=== PATIENT | male | born 1945 | race Caucasian/White ===

== ENCOUNTER 2018-05-05 17:21 | Emergency (ER) | payer MEDICARE ==
--- OUTSIDE RECORDS SUMMARY | 2018-05-05 17:42 | XMS REPORT | Continuity of Care Document ---
:1945 External Reference #:[id number] Author Name Kimberley Russell M.D. 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 Lavern Yusuf MD Primary Care Physician Unavailable Payers Type Date Identification Numbers Payment Provider Subscriber Policy Number: [id number] Medicare Logan Mcintyre PayID: [id number] [place] [address] Effective: 2009 Policy Number: [id number] Medicare Logan Mcintyre Expires: 2017 PayID: [id number] [address] [place] [address] Effective: 2014 Policy Number: [employer] Logan Mcintyre [id number] Healthcare PayID: [id number] [place] [address] Advance Directives Description No Information Available Problems Date Description Provider Status Onset: 06/21/2014 Benign essential hypertension Isabel Garcia M.D. Active Onset: 06/21/2014 Mixed hyperlipidemia Isabel Garcia M.D. Active Onset: 06/21/2014 Central sleep apnea syndrome Isabel Garcia M.D. Active Onset: 06/21/2014 Heartburn Isabel Garcia M.D. Active Onset: 06/21/2014 History of allergy to seafood Isabel Garcia M.D. Active Onset: 06/21/2014 Allergic rhinitis Isabel Garcia M.D. Active Onset: 06/21/2014 Sciatica Isabel Garcia M.D. Active Onset: 06/21/2014 Aortic aneurysm Isabel Garcia M.D. Active Onset: 06/21/2014 Transient global amnesia Isabel Garcia M.D. Active Onset: 01/03/2015 Essential hypertension Isabel Garcia M.D. Active Onset: 07/11/2015 Centriacinar emphysema Lavern Yusuf MD Active Onset: 07/11/2015 Lymphadenopathy Lavern Yusuf MD Active Onset: 07/11/2015 Gastroesophageal reflux disease Lavern Yusuf MD Active Onset: 03/18/2017 Otitis externa Grant Murillo M.D. Active Onset: 04/02/2017 Arthralgia of the pelvic region and Jeremiah Taylor M.D. Active thigh Onset: 05/13/2017 Acute sinusitis Lavern Yusuf MD Active Onset: 08/13/2017 Abnormal glucose level Lavern Yusuf MD Active Onset: 08/13/2017 Acquired renal cystic disease Lavern Yusuf MD Active Onset: 04/10/2018 Raised prostate specific antigen Kimberley Russell M.D. Active Family History Date Family Member(s) Problem(s) Comments Father due to War () Mother Hypertension First Brother Heart Disease Social History Type Date Description Comments Sex Unknown Lives With Diet Patient is on a low carb diet Occupation Retired ADL's/IADL's Independent with all ADL's Tobacco Use Start: Unknown End: Quit 1984 Unknown Cigarette Use Pack Years - 25 ETOH Use Denies alcohol use Tobacco Use Start: Unknown End: Patient is a former Pt quit smoking smoker 1989. Recreational Drug Use Denies Drug Use Smoking Status Reviewed: 04/08/18 Patient is a former Pt quit smoking smoker 1989. Allergies, Adverse Reactions, Alerts Date Description Reaction Status Severity Comments 07/20/2014 Levaquin Active 06/07/2014 NKDA Inactive Medications Medication Date Status Form Strength Qnty SIG Indications Ordering Provider Omeprazole 03/[address] 10mg 90cap take 1 R12 Gagen, 2018 s capsules Gemini by mouth e, MS, every day [employer], 30 minutes CNM before a meal. Ipratropium 03/04 Active Solution 0.06% 15ml use 2 J06.9 Gagen, [place] sprays in Gemini each e, MS, nostril [employer], twice a CNM day Tylenol 8 Hour 02/18 Active Tablets ER 650mg 60tab 1 tab by [place], Arthritis Pain s mouth Jeremiah, every 6 M.D. hours pain Zyrtec Allergy 06/07 Active Tablets 10mg 90tab 1 tab by Madelin, /2016 s mouth MD Lavern every night Fluticasone 06/07 Active Suspension 50mcg/Act 15.80 2 sprays Madelin, Propionate 0ml intranasal MD Lavern every day Colchicine 10/08 Active Tablets 0.6mg 30tab take 1 tab M79.674 Madelin, /2015 s at first MD Lavern sign of gout attack followed by a 2nd dose 1 hour later; then take 1 tab daily until sx resolve Amlodipine 07/20 Active Tablets 5mg 90tab Take One Madelin, Besylate s Tablet By MD Lavern Mouth Once Daily Fish Oil + D3 06/21 Active Capsules 6306-7993 30cap by mouth E78.2 Mezu , /2014 mg-Unit s twice a Isabel, day M.D. Hydrochlorothiazi 06/21 Active Tablets 25mg 90tab Take One I10 Madelin, de s Tablet By MD Lavern Mouth Once Daily Aspir-[address] 81mg 1 by mouth Unknown /0000 every day Simvastatin Active Tablets 20mg 90tab take one Gagen, / s tablet by Gemini mouth once e, MS, daily [employer], CNM Lisinopril Active Tablets 40mg 90tab Take One I10 Soria, / s Tablet By Sharif Mouth Once M.D. Daily Amoxicillin/Clavu 03/04 Hx Tablets 875-125mg 20tab take one J01.90 Gagen, lanate Potassium /2017 s tablet Gemini - every 12 e, MS, 04/10 hours [employer], CNM Doxycycline 02/04 Hx Capsules 100mg 20cap 1 po bid J01.90 Madelin, Monohydrate /2017 s MD Lavern - 02/14 Amoxicillin/Clavu 05/23 Hx Tablets 875-125mg 20tab 1 tab by Madelin, lanate Potassium /2017 s mouth MD Lavern - q12hrs for 08/13 10 days Neomycin/Polymyxi 03/18 Hx Suspension 3.5-81748 1bott 4 gtt in [facility] n/Hydrocortisone /2016 -1 affected , (Otic) ear tid Grant, for 10 M.D. days Amoxicillin/Clavu 03/01 Hx Tablets 875-125mg 14tab 1 tab by Madelin, lanate Potassium /2015 s mouth MD Lavern - q12hrs for 05/27 7 days Fluticasone 03/01 Hx Suspension 50mcg/Act 16gm 1-2 sprays Madelin, Propionate intranasal MD Lavern - every day 06/07 as needed /2016 Metoprolol 01/25 Hx Tablets ER 25mg 90tab 1 by mouth I10 Madelin, Succinate ER /2015 24HR s every day MD Lavern - 09/11 Metoprolol Hx Tablets ER 50mg 30tab 1 by mouth 401.1 Mezu, Succinate ER /0000 24HR s every day Ike Hall M.D. 07/20 Metamucil Hx Powder 28.3% 1 Unknown /0000 tablespoon daily in fld Fish Oil 0000 Hx Capsules by mouth Unknown /0000 twice a - day 06/21 Allergy Relief 00 Hx Capsules as needed Unknown /0000 Metoprolol 0000 Hx Tablets ER 50mg 1 by mouth Unknown Succinate ER /0000 24HR every day Omeprazole [address] 20mg 90cap take one R12 Gagen, /0000 s capsule by Gemini - mouth once e, MS, 03/04 daily [employer], /2018 CNM Immunizations CPT Code Status Date Vaccine Lot # [id number] Given 03/11/2018 Influenza High Dose [id number] Given 02/05/2017 Influenza High Dose [id number] Given 01/26/2016 Influenza Vaccine (Fluzone) Age 3 And Older [id number] Given 01/03/2015 Influenza Vaccine (Fluzone) Age 3 And Older [id number] Given 01/03/2015 Pneumococcal Conjugate Vaccine 13 Valent For [id number] Intramuscular Use Vital Signs Date Vital Result Comment 04/10/2018 10:39am BP Systolic 153 mmHg BP Diastolic 77 mmHg Body Temperature 98.4 F Heart Rate 65 /min Respiratory Rate 16 /min Weight 241.00 lb O2 % BldC Oximetry 97 % Pain Level 0 04/10/2018 10:35am Weight 241.00 lb Pain Level 0 03/11/2018 10:46am BP Systolic Sitting Left Arm 103 mmHg BP Diastolic Sitting Left Arm 71 mmHg Body Temperature 97.7 F Heart Rate 79 /min Respiratory Rate 20 /min Height 71.5 inches 5'11.50" Weight 241.00 lb BMI (Body Mass Index) 33.1 kg/m2 BSA (Body Surface Area) 2.29 m2 Moody body weight in kilograms 79 kg O2 % BldC Oximetry 94 % 03/04/2018 1:41pm BP Systolic Sitting Left Arm 110 mmHg BP Diastolic Sitting Left Arm 60 mmHg Body Temperature 99.0 F Heart Rate 87 /min Respiratory Rate 24 /min Height 71.5 inches 5'11.50" Weight 241.00 lb per pt BMI (Body Mass Index) 33.1 kg/m2 BSA (Body Surface Area) 2.29 m2 Moody body weight in kilograms 79 kg O2 % BldC Oximetry 96 % Ra 02/04/2018 10:33am BP Systolic Sitting Left Arm 118 mmHg BP Diastolic Sitting Left Arm 70 mmHg Body Temperature 99.4 F Heart Rate 74 /min reg Respiratory Rate 24 /min Height 71.5 inches 5'11.50" Weight 249.00 lb BMI (Body Mass Index) 34.2 kg/m2 BSA (Body Surface Area) 2.33 m2 Moody body weight in kilograms 79 kg O2 % BldC Oximetry 98 % ra 09/10/2017 3:15pm BP Systolic Sitting Right Arm 138 mmHg BP Diastolic Sitting Right Arm 82 mmHg Heart Rate 54 /min Respiratory Rate 18 /min Height 71.5 inches 5'11.50" Weight 231.00 lb BMI (Body Mass Index) 31.8 kg/m2 BSA (Body Surface Area) 2.25 m2 Moody body weight in kilograms 79 kg 08/13/2017 9:38am BP Systolic Sitting Right Arm 112 mmHg BP Diastolic Sitting Right Arm 63 mmHg Heart Rate 55 /min Respiratory Rate 16 /min Height 71.5 inches 5'11.50" Weight 235.00 lb BMI (Body Mass Index) 32.3 kg/m2 BSA (Body Surface Area) 2.27 m2 Moody body weight in kilograms 79 kg 05/13/2017 10:35am BP Systolic Sitting Right Arm 135 mmHg BP Diastolic Sitting Right Arm 75 mmHg Body Temperature 98.1 F Heart Rate 62 /min Height 71.5 inches 5'11.50" Weight 233.00 lb BMI (Body Mass Index) 32.0 kg/m2 BSA (Body Surface Area) 2.26 m2 Moody body weight in kilograms 79 kg O2 % BldC Oximetry 95 % 04/02/2017 1:24pm BP Systolic Sitting Left Arm 95 mmHg BP Diastolic Sitting Left Arm 59 mmHg Body Temperature 97.9 F Heart Rate 61 /min Respiratory Rate 20 /min Height 71.5 inches 5'11.50" Weight 231.00 lb BMI (Body Mass Index) 31.8 kg/m2 BSA (Body Surface Area) 2.25 m2 Moody body weight in kilograms 79 kg 03/18/2017 1:06pm BP Systolic Sitting Right Arm 125 mmHg BP Diastolic Sitting Right Arm 69 mmHg Body Temperature 97.7 F Heart Rate 60 /min Height 71.5 inches 5'11.50" Weight 230.00 lb BMI (Body Mass Index) 31.6 kg/m2 BSA (Body Surface Area) 2.25 m2 Moody body weight in kilograms 79 kg O2 % BldC Oximetry 92 % ra 02/18/2017 3:30pm BP Systolic 122 mmHg BP Diastolic 68 mmHg Body Temperature 97.7 F Height 71.5 inches 5'11.50" Weight 237.00 lb BMI (Body Mass Index) 32.6 kg/m2 BSA (Body Surface Area) 2.28 m2 Moody body weight in kilograms 79 kg 02/05/2017 9:40am BP Systolic Sitting Left Arm 120 mmHg BP Diastolic Sitting Left Arm 64 mmHg Heart Rate 54 /min Respiratory Rate 12 /min Height 71.5 inches 5'11.50" Weight 227.00 lb BMI (Body Mass Index) 31.2 kg/m2 BSA (Body Surface Area) 2.24 m2 Moody body weight in kilograms 79 kg 10/07/2016 10:01am BP Systolic Sitting Right Arm 112 mmHg BP Diastolic Sitting Right Arm 62 mmHg Body Temperature 94.8 F Heart Rate 55 /min Height 71.5 inches 5'11.50" Weight 232.00 lb BMI (Body Mass Index) 31.9 kg/m2 BSA (Body Surface Area) 2.26 m2 Moody body weight in kilograms 79 kg O2 % BldC Oximetry 96 % 06/07/2016 9:56am BP Systolic Sitting Right Arm 122 mmHg BP Diastolic Sitting Right Arm 66 mmHg Heart Rate 54 /min Height 71.5 inches 5'11.50" Weight 231.00 lb BMI (Body Mass Index) 31.8 kg/m2 BSA (Body Surface Area) 2.25 m2 O2 % BldC Oximetry 92 % 03/01/2016 3:38pm BP Systolic 146 mmHg BP Diastolic 72 mmHg Body Temperature 97.3 F Heart Rate 56 /min Height 71.5 inches 5'11.50" Weight 226.00 lb BMI (Body Mass Index) 31.1 kg/m2 BSA (Body Surface Area) 2.23 m2 01/26/2016 9:35am BP Systolic 124 mmHg BP Diastolic 72 mmHg Heart Rate 72 /min Height 71.5 inches 5'11.50" Weight 233.00 lb BMI (Body Mass Index) 32.0 kg/m2 BSA (Body Surface Area) 2.26 m2 10/09/2015 2:40pm BP Systolic Sitting Right Arm 132 mmHg BP Diastolic Sitting Right Arm 70 mmHg Body Temperature 98.2 F Height 71.5 inches 5'11.50" Weight 249.50 lb BMI (Body Mass Index) 34.3 kg/m2 BSA (Body Surface Area) 2.33 m2 09/11/2015 9:15am BP Systolic Sitting Left Arm 112 mmHg BP Diastolic Sitting Left Arm 64 mmHg Heart Rate 61 /min Respiratory Rate 16 /min Height 71.5 inches 5'11.50" Weight 256.00 lb BMI (Body Mass Index) 35.2 kg/m2 BSA (Body Surface Area) 2.35 m2 07/11/2015 10:15am BP Systolic 120 mmHg BP Diastolic 74 mmHg Heart Rate 64 /min Height 71.5 inches 5'11.50" Weight 245.00 lb BMI (Body Mass Index) 33.7 kg/m2 BSA (Body Surface Area) 2.31 m2 01/03/2015 10:42am BP Systolic 136 mmHg BP Diastolic 60 mmHg Heart Rate 60 /min Height 71.5 inches 5'11.50" Weight 247.00 lb BMI (Body Mass Index) 34.0 kg/m2 BSA (Body Surface Area) 2.32 m2 O2 % BldC Oximetry 93 % Ra 09/05/2014 11:35am BP Systolic Sitting Left Arm 120 mmHg BP Diastolic Sitting Left Arm 62 mmHg Heart Rate 76 /min Respiratory Rate 16 /min Height 71.5 inches 5'11.50" Weight 250.00 lb BMI (Body Mass Index) 34.4 kg/m2 BSA (Body Surface Area) 2.33 m2 07/20/2014 8:44am Heart Rate 52 /min Respiratory Rate 16 /min Height 71.5 inches 5'11.50" Weight 252.00 lb BMI (Body Mass Index) 34.7 kg/m2 BSA (Body Surface Area) 2.34 m2 06/21/2014 9:45am BP Systolic Sitting Right Arm 120 mmHg BP Diastolic Sitting Right Arm 70 mmHg Heart Rate 51 /min Respiratory Rate 18 /min Height 71.5 inches 5'11.50" Weight 245.00 lb BMI (Body Mass Index) 33.7 kg/m2 BSA (Body Surface Area) 2.31 m2 O2 % BldC Oximetry 94 % Results Test Date Facility Test Result H/L Range Note Laboratory test 02/27/2018 [facility] Prostate Specific 5.71 ng/mL < 4.0 1, 2 [address] [place], [place] [id number] [phone] LDL Cholesterol 02/27/2018 [facility] Cholesterol 148 mg/dL <200 3 Profile [address] [place], [place] [id number] [phone] Triglycerides 143 mg/dL <150 4 HDL Cholesterol 34 mg/dL Low >40 5 LDL-Cholesterol 85 mg/dL < 100 6 Comprehensive Metabolic 02/27/2018 [facility] Glucose 106 mg/dL N 74-106 Panel [address] [place], [place] [id number] [phone] BUN 21 mg/dL High 7-18 Creatinine 1.2 mg/dL N 0.6-1.3 Glom Filtration Rate, Estimate >60 mL/min >60 If >60 mL/min >60 7 BUN/Creat 17.5 ratio Sodium 139 mmol/L N 136-145 Potassium 3.7 mmol/L N 3.5-5.1 Chloride 107 mmol/L N 98-107 Carbon Dioxide 25 mmol/L N 21-32 Anion Gap 7 mEq/L Low 8-16 Calcium 8.3 mg/dL Low 8.5-10.1 Total Protein 7.6 g/dL N 6.4-8.2 Albumin 3.5 g/dL N 3.4-5.0 Globulin 4.1 g/dL N 1.9-4.3 Alb/Glob 0.9 ratio Bilirubin,Total 0.6 mg/dL N 0.2-1.0 Sgot/Ast 21 U/L N 15-37 SGPT/Alt 30 U/L N 12-78 Alkaline Phosphatase 77 U/L N 45-117 CBS W/Automated Diff 02/27/2018 [facility] White Blood 5.6 K/uL N 3.4-10.[address] [place] [address] [phone] Red Blood Count 5.17 M/uL N 4.20-5.80 Hemoglobin 14.6 gm/dL N 12.8-17.0 Hematocrit 43.4 % N 38.0-48.0 Mean Cell Volume 83.9 fl N 80.0-96.0 Mean Corpuscular HGB 28.2 pg N 27.0-33.0 Mean Corpuscular HGB Conc 33.6 g/dL N 31.7-36.0 Platelet Count 166 K/uL N 155-360 Red Cell Distri Width SD 43.2 fl N 36-51 Red Cell Distri Width %CV 14.4 % N 11.6-15.8 Mean Platelet Volume 10.5 fL N 6.6-10.6 Neut% 59.0 % N 33.0-73.0 Lymph % 26.8 % N 20.0-42.0 [place] % 9.3 % N 0.0-10.0 Eo% 4.7 % N 0.0-6.6 Bas% 0.2 % N 0.0-1.1 Neut# 3.30 K/uL N 1.8-7.0 Lymph # 1.50 K/uL N 1.0-4.0 [place] # 0.52 K/uL N 0.0-0.8 Eos # 0.26 K/uL N 0.0-0.5 Baso # 0.01 K/uL N 0.0-0.1 Glycohemoglobin A1c 02/27/2018 [facility] Glycohemoglobin 6.0 % N 4.2-6.[address] (A1c) [place] [address] [phone] eAG 126 mg/dL Comprehensive Metabolic 07/29/2017 [facility] Glucose 102 mg/dL N 74-106 [address] [place] [address] [phone] BUN 17 mg/dL N 7-18 Creatinine 1.1 mg/dL N 0.6-1.3 Glom Filtration Rate, Estimate >60 mL/min >60 If >60 mL/min >60 10 BUN/Creat 15.4 ratio Sodium 141 mmol/L N 136-145 Potassium 4.0 mmol/L N 3.5-5.1 Chloride 107 mmol/L N 98-107 Carbon Dioxide 25 mmol/L N 21-32 Anion Gap 9 mEq/L N 8-16 Calcium 8.6 mg/dL N 8.5-10.1 Total Protein 7.4 g/dL N 6.4-8.2 Albumin 3.6 g/dL N 3.4-5.0 Globulin 3.8 g/dL N 1.9-4.3 Alb/Glob 0.9 ratio Bilirubin,Total 0.6 mg/dL N 0.2-1.0 Sgot/Ast 23 U/L N 15-37 SGPT/Alt 27 U/L N 12-78 Alkaline Phosphatase 85 U/L N 45-117 LDL Cholesterol Profile 07/29/2017 [facility] Cholesterol 142 mg/dL <[address] [place] [address] [phone] Triglycerides 198 mg/dL High <150 12 HDL Cholesterol 34 mg/dL Low >40 13 LDL-Cholesterol 68 mg/dL < 100 14 Glycohemoglobin A1c 07/29/2017 [facility] Glycohemoglobin 6.3 % N 4.2-6.[address] (A1c) [place] [address] [phone] eAG 134 mg/dL CBS W/Automated Diff 07/29/2017 [facility] White Blood 6.1 K/uL N 3.4-10.[address] [place] [address] [phone] Red Blood Count 5.40 M/uL N 4.20-5.80 Hemoglobin 14.9 gm/dL N 12.8-17.0 Hematocrit 44.7 % N 38.0-48.0 Mean Cell Volume 82.8 fl N 80.0-96.0 Mean Corpuscular HGB 27.6 pg N 27.0-33.0 Mean Corpuscular HGB Conc 33.3 g/dL N 31.7-36.0 Platelet Count 193 K/uL N 155-360 Red Cell Distri Width SD 43.4 fl N 36-51 Red Cell Distri Width %CV 14.6 % N 11.6-15.8 Mean Platelet Volume 10.9 fL High 6.6-10.6 Neut% 58.6 % N 33.0-73.0 Lymph % 27.6 % N 20.0-42.0 [place] % 9.7 % N 0.0-10.0 Eo% 3.9 % N 0.0-6.6 Bas% 0.2 % N 0.0-1.1 Neut# 3.56 K/uL N 1.8-7.0 Lymph # 1.68 K/uL N 1.0-4.0 [place] # 0.59 K/uL N 0.0-0.8 Eos # 0.24 K/uL N 0.0-0.5 Baso # 0.01 K/uL N 0.0-0.1 Comprehensive Metabolic 01/23/2017 [facility] Glucose 103 mg/dL N 74-106 16 Panel [address] [place] [address] [phone] BUN 24 mg/dL High 7-18 Creatinine 1.1 mg/dL N 0.6-1.3 Glom Filtration Rate, Estimate >60 mL/min >60 If >60 mL/min >60 17 BUN/Creat 21.8 ratio Sodium 141 mmol/L N 136-145 Potassium 3.8 mmol/L N 3.5-5.1 Chloride 107 mmol/L N 98-107 Carbon Dioxide 25 mmol/L N 21-32 Anion Gap 9 mEq/L N 8-16 Calcium 9.0 mg/dL N 8.5-10.1 Total Protein 7.3 g/dL N 6.4-8.2 Albumin 3.7 g/dL N 3.4-5.0 Globulin 3.6 g/dL N 1.9-4.3 Alb/Glob 1.0 ratio Bilirubin,Total 0.5 mg/dL N 0.2-1.0 Sgot/Ast 20 U/L N 15-37 SGPT/Alt 23 U/L N 12-78 Alkaline Phosphatase 86 U/L N 45-117 Glycohemoglobin A1c 01/23/2017 [facility] Glycohemoglobin 6.0 % N 4.2-6.[address] (A1c) [place], [place] [id number] [phone] eAG 126 mg/dL LDL Cholesterol Profile 01/23/2017 [facility] Cholesterol 139 mg/dL <[address] [place], [place] [id number] [phone] Triglycerides 133 mg/dL <150 20 HDL Cholesterol 41 mg/dL >40 21 LDL-Cholesterol 71 mg/dL < 100 22 CBS W/Automated Diff 01/23/2017 [facility] White Blood 5.3 K/uL N 3.4-10.[address] [place] [address] [phone] Red Blood Count 5.34 M/uL N 4.20-5.80 Hemoglobin 14.8 gm/dL N 12.8-17.0 Hematocrit 43.6 % N 38.0-48.0 Mean Cell Volume 81.6 fl N 80.0-96.0 Mean Corpuscular HGB 27.7 pg N 27.0-33.0 Mean Corpuscular HGB Conc 33.9 g/dL N 31.7-36.0 Platelet Count 159 K/uL N 150-400 Red Cell Distri Width SD 43.4 fl N 36-51 Red Cell Distri Width %CV 14.7 % N 11.6-15.8 Mean Platelet Volume 11.2 fL High 6.6-10.6 Neut% 57.8 % N 33.0-73.0 Lymph % 27.9 % N 20.0-42.0 [place] % 10.5 % High 0.0-10.0 Eo% 3.6 % N 0.0-6.6 Bas% 0.2 % N 0.0-1.1 Neut# 3.04 K/uL N 1.8-7.0 Lymph # 1.47 K/uL N 1.0-4.0 [place] # 0.55 K/uL N 0.0-0.8 Eos # 0.19 K/uL N 0.0-0.5 Baso # 0.01 K/uL N 0.0-0.1 Glycohemoglobin 09/30/2016 [facility] Glycohemoglobin 5.9 % N 4.2-6.3 23, A1c [address] (A1c) [address] [place] [address] [phone] eAG 123 mg/dL LDL Cholesterol Profile 09/30/2016 [facility] Cholesterol 150 mg/dL <[address] [place] [address] [phone] Triglycerides 171 mg/dL High <150 26 HDL Cholesterol 35 mg/dL Low >40 27 LDL-Cholesterol 81 mg/dL < 100 28 CBS W/Automated Diff 09/30/2016 [facility] White Blood 6.9 K/uL N 3.4-10.[address] Count [place], [place] [address] [phone] Red Blood Count 5.61 M/uL N 4.20-5.80 Hemoglobin 15.4 gm/dL N 12.8-17.0 Hematocrit 45.8 % N 38.0-48.0 Mean Cell Volume 81.6 fl N 80.0-96.0 Mean Corpuscular HGB 27.5 pg N 27.0-33.0 Mean Corpuscular HGB Conc 33.6 g/dL N 31.7-36.0 Platelet Count 172 K/uL N 150-400 Red Cell Distri Width SD 43.0 fl N 36-51 Red Cell Distri Width %CV 14.6 % N 11.6-15.8 Mean Platelet Volume 11.1 fL High 6.6-10.6 Neut% 61.6 % N 33.0-73.0 Lymph % 24.7 % N 20.0-42.0 [place] % 10.4 % High 0.0-10.0 Eo% 3.2 % N 0.0-6.6 Bas% 0.1 % N 0.0-1.1 Neut# 4.24 K/uL N 1.8-7.0 Lymph # 1.70 K/uL N 1.0-4.0 [place] # 0.72 K/uL N 0.0-0.8 Eos # 0.22 K/uL N 0.0-0.5 Baso # 0.01 K/uL N 0.0-0.1 Comprehensive Metabolic 09/30/2016 [facility] Glucose 101 mg/dL N 74-106 Panel [address] [place] [address] [phone] BUN 19 mg/dL High 7-18 Creatinine 1.1 mg/dL N 0.6-1.3 Glom Filtration Rate, Estimate >60 mL/min >60 If >60 mL/min >60 29 BUN/Creat 17.2 ratio Sodium 141 mmol/L N 136-145 Potassium 4.0 mmol/L N 3.5-5.1 Chloride 108 mmol/L High 98-107 Carbon Dioxide 25 mmol/L N 21-32 Anion Gap 8 mEq/L N 8-16 Calcium 8.8 mg/dL N 8.5-10.1 Total Protein 7.4 g/dL N 6.4-8.2 Albumin 3.7 g/dL N 3.4-5.0 Globulin 3.7 g/dL N 1.9-4.3 Alb/Glob 1.0 ratio Bilirubin,Total 0.7 mg/dL N 0.2-1.0 Sgot/Ast 25 U/L N 15-37 SGPT/Alt 22 U/L N 12-78 Alkaline Phosphatase 102 U/L N 45-117 RDW RBC Auto-Rto 01/29/2016 N2N/CCD Import RDW RBC Auto-Rto 14.2 11.6- 15.8 RDW RBC Auto 01/29/2016 N2N/CCD Import RDW RBC Auto 42.5 36-51 RBC # Bld Auto 01/29/2016 N2N/CCD Import RBC # Bld Auto 5.17 4.20-5.80 Prot SerPl-mCnc 01/29/2016 N2N/CCD Import Prot SerPl-mCnc 7.2 6.4-8.2 Potassium 01/29/2016 N2N/CCD Import Potassium 4.1 3.5-5.1 SerPl-sCnc SerPl-sCnc Platelet # Bld 01/29/2016 N2N/CCD Import Platelet # Bld 178 150-400 Auto Auto PMV Bld Auto 01/29/2016 N2N/CCD Import PMV Bld Auto 11.3 High 6.6-10.6 Neutrophils/leuk 01/29/2016 N2N/CCD Import Neutrophils/leuk 57.2 33.0- 73.0 NFr Bld Auto NFr Bld Auto Neutrophils # Bld 01/29/2016 N2N/CCD Import Neutrophils # Bld 3.32 1.8- 7.0 Auto Auto Monocytes/leuk NFr 01/29/2016 N2N/CCD Import Monocytes/leuk 11.2 High 0.0 -10.0 Bld Auto NFr Bld Auto Monocytes # Bld 01/29/2016 N2N/CCD Import Monocytes # Bld 0.65 0.0-0.8 Auto Auto Serum or plasma 01/29/2016 N2N/CCD Import Serum or plasma 35 Low >40 cholesterol in HDL cholesterol in measurement (ma HDL measurement (mass/volume) Serum or plasma 01/29/2016 N2N/CCD Import Serum or plasma 147 <200 cholesterol cholesterol measurement measurement (mass/volu (mass/volume) Serum or plasma 01/29/2016 N2N/CCD Import Serum or plasma 141 <150 triglyceride triglyceride measurement measurement (mass/vol (mass/volume) Sodium SerPl-sCnc 01/29/2016 N2N/CCD Import Sodium SerPl-sCnc 140 136- 145 Unloinc 01/29/2016 N2N/CCD Import Unloinc See Note 30 WBC # Bld Auto 01/29/2016 N2N/CCD Import WBC # Bld Auto 5.8 3.4-10.5 Comprehensive 01/29/2016 [facility] Glucose 96 mg/dL N 74-106 31 Metabolic Panel [address] [place] [id number] [phone] BUN 24 mg/dL High 7-18 Creatinine 1.2 mg/dL N 0.6-1.3 Glom Filtration Rate, Estimate >60 mL/min N >60 If >60 mL/min N >60 32 BUN/Creat 20.0 ratio N Sodium 140 mmol/L N 136-145 Potassium 4.1 mmol/L N 3.5-5.1 Chloride 105 mmol/L N 98-107 Carbon Dioxide 28 mmol/L N 21-32 Anion Gap 7 mEq/L Low 8-16 Calcium 8.7 mg/dL N 8.5-10.1 Total Protein 7.2 g/dL N 6.4-8.2 Albumin 3.6 g/dL N 3.4-5.0 Globulin 3.6 g/dL N 1.9-4.3 Alb/Glob 1.0 ratio N Bilirubin,Total 0.6 mg/dL N 0.2-1.0 Sgot/Ast 24 U/L N 15-37 SGPT/Alt 23 U/L N 12-78 Alkaline Phosphatase 80 U/L N 45-117 CBS W/Automated Diff 01/29/2016 [facility] White Blood 5.8 K/uL N 3.4-10.[address] [place] [address] [phone] Red Blood Count 5.17 M/uL N 4.20-5.80 Hemoglobin 14.5 gm/dL N 12.8-17.0 Hematocrit 43.2 % N 38.0-48.0 Mean Cell Volume 83.6 fl N 80.0-96.0 Mean Corpuscular HGB 28.0 pg N 27.0-33.0 Mean Corpuscular HGB Conc 33.6 g/dL N 31.7-36.0 Platelet Count 178 K/uL N 150-400 Red Cell Distri Width SD 42.5 fl N 36-51 Red Cell Distri Width %CV 14.2 % N 11.6-15.8 Mean Platelet Volume 11.3 fL High 6.6-10.6 Neut% 57.2 % N 33.0-73.0 Lymph % 26.9 % N 17.0-56.0 [place] % 11.2 % High 0.0-10.0 Eo% 4.5 % N 0.0-5.0 Bas% 0.2 % N 0.1-1.0 Neut# 3.32 K/uL N 1.8-7.0 Lymph # 1.56 K/uL Low 1.8-7.0 [place] # 0.65 K/uL N 0.0-0.8 Eos # 0.26 K/uL N 0.0-0.5 Baso # 0.01 K/uL Low 0.1-0.2 LDL Cholesterol Profile 01/29/2016 [facility] Cholesterol 147 mg/dL N <[address] [place] [address] [phone] Triglycerides 141 mg/dL N <150 34 HDL Cholesterol 35 mg/dL Low >40 35 LDL-Cholesterol 84 mg/dL N < 100 36 Glycohemoglobin A1c 01/29/2016 [facility] Glycohemoglobin 5.9 % N 4.2-6.[address] (A1c) [place], [place] [id number] [phone] eAG 123 mg/dL N Laboratory test 01/29/2016 [facility] Slide Review (SEE N [address] NOTE) [place] [address] [phone] Alp SerPl-cCnc 01/29/2016 N2N/CCD Import Alp SerPl-cCnc 80 45-11 7 Alt SerPl-cCnc 01/29/2016 N2N/CCD Import Alt SerPl-cCnc 23 12-78 Ast SerPl-cCnc 01/29/2016 N2N/CCD Import Ast SerPl-cCnc 24 15-37 Albumin SerPl-mCnc 01/29/2016 N2N/CCD Import Albumin SerPl-mCnc 3.6 3.4- 5 .0 Albumin/Glob SerPl 01/29/2016 N2N/CCD Import Albumin/Glob SerPl 1.0 Anion Gap 01/29/2016 N2N/CCD Import Anion Gap 7 Low 8-16 SerPl-sCnc SerPl-sCnc BUN SerPl-mCnc 01/29/2016 N2N/CCD Import BUN SerPl-mCnc 24 High 7-18 BUN/Creat SerPl 01/29/2016 N2N/CCD Import BUN/Creat SerPl 20.0 Basophils # Bld 01/29/2016 N2N/CCD Import Basophils # Bld 0.01 Low 0.1-0 Auto Auto .2 Basophils/leuk NFr 01/29/2016 N2N/CCD Import Basophils/leuk NFr 0.2 0.1- 1 Bld Auto Bld Auto .0 Bilirub SerPl-mCnc 01/29/2016 N2N/CCD Import Bilirub SerPl-mCnc 0.6 0.2- 1 .0 Blood glucose mean 01/29/2016 N2N/CCD Import Blood glucose mean 123 value measurement value measurement estimated fro estimated from glycated hemoglobin (mass/volume) Co2 SerPl-sCnc 01/29/2016 N2N/CCD Import Co2 SerPl-sCnc 28 21-32 Calcium SerPl-mCnc 01/29/2016 N2N/CCD Import Calcium SerPl-mCnc 8.7 8.5- 1 0.1 MCV RBC Auto 01/29/2016 N2N/CCD Import MCV RBC Auto 83.6 80.0- 96.0 MCHC RBC Auto-mCnc 01/29/2016 N2N/CCD Import MCHC RBC Auto-mCnc 33.6 31.7- 36.0 MCH RBC Qn Auto 01/29/2016 N2N/CCD Import MCH RBC Qn Auto 28.0 27.0- 33.0 Lymphocytes/leuk 01/29/2016 N2N/CCD Import Lymphocytes/leuk 26.9 17.0- NFr Bld Auto NFr Bld Auto 56.0 Lymphocytes # Bld 01/29/2016 N2N/CCD Import Lymphocytes # Bld 1.56 Low 1.8-7 Auto Auto .0 LDLc SerPl 01/29/2016 N2N/CCD Import LDLc SerPl 84 < 100 Calc-nc Calc-mCnc Hgb Bld-mCnc 01/29/2016 N2N/CCD Import Hgb Bld-mCnc 14.5 12.8- 17.0 Hgb A1c MFr Bld 01/29/2016 N2N/CCD Import Hgb A1c MFr Bld 5.9 4.2-6 .3 Hct VFr Bld Auto 01/29/2016 N2N/CCD Import Hct VFr Bld Auto 43.2 38.0- 48.0 Glucose SerPl-mCnc 01/29/2016 N2N/CCD Import Glucose SerPl-mCnc 96 74- 10 6 Globulin Ser 01/29/2016 N2N/CCD Import Globulin Ser 3.6 1.9-4 Calc-nc Calc-mCnc .3 Eosinophil/leuk 01/29/2016 N2N/CCD Import Eosinophil/leuk 4.5 0.0-5 NFr Bld Auto NFr Bld Auto .0 Eosinophil # Bld 01/29/2016 N2N/CCD Import Eosinophil # Bld 0.26 0.0-0 Auto Auto .5 Creat SerPl-mCnc 01/29/2016 N2N/CCD Import Creat SerPl-mCnc 1.2 0.6-1 .3 Chloride 01/29/2016 N2N/CCD Import Chloride 105 98-10 SerPl-sCnc SerPl-sCnc 7 Glycohemoglobin 07/13/2015 [facility] Glycohemoglobin 6.1 % 4.2-[address] (A1c) .3 [place], [place] [id number] [phone] eAG 128 mg/dL LDL Cholesterol Profile 07/13/2015 [facility] Cholesterol 157 mg/dL <[address] [place], [place] [id number] [phone] Triglycerides 182 mg/dL High <150 41 HDL Cholesterol 27 mg/dL Low >40 42 LDL-Cholesterol 94 mg/dL < 100 43 CBC W/Automated Diff 07/13/2015 [facility] White Blood 5.7 K/uL 3.4-10.[address] [place] [address] [phone] Red Blood Count 5.34 M/uL 4.20-5.80 Hemoglobin 14.4 gm/dL 12.8-17.0 Hematocrit 43.9 % 38.0-48.0 Mean Cell Volume 82.2 fl 80.0-96.0 Mean Corpuscular HGB 27.0 pg 27.0-33.0 Mean Corpuscular HGB Conc 32.8 g/dL 31.7-36.0 Platelet Count 172 K/uL 150-400 Red Cell Distri Width SD 44.5 fl 36-51 Red Cell Distri Width %CV 14.8 % 11.6-15.8 Mean Platelet Volume 10.5 fL 6.6-10.6 Neut% 60.0 % 33.0-73.0 Lymph % 26.7 % 17.0-56.0 [place] % 9.8 % 0.0-10.0 Eo% 3.3 % 0.0-5.0 Bas% 0.2 % 0.1-1.0 Neut# 3.43 K/uL 1.8-7.0 Lymph # 1.53 K/uL Low 1.8-7.0 [place] # 0.56 K/uL 0.0-0.8 Eos # 0.19 K/uL 0.0-0.5 Baso # 0.01 K/uL Low 0.1-0.2 Comprehensive Metabolic 07/13/2015 [facility] Glucose 113 mg/dL High 74-[address] [place] [address] [phone] BUN 24 mg/dL High 7-18 Creatinine 1.2 mg/dL 0.6-1.3 Glom Filtration Rate, Estimate >60 mL/min >60 If >60 mL/min >60 44 BUN/Creat 20.0 ratio Sodium 138 mmol/L 136-145 Potassium 4.1 mmol/L 3.5-5.1 Chloride 107 mmol/L 98-107 Carbon Dioxide 26 mmol/L 21-32 Anion Gap 5 mEq/L Low 8-16 Calcium 8.7 mg/dL 8.5-10.1 Total Protein 7.6 g/dL 6.4-8.2 Albumin 3.5 g/dL 3.4-5.0 Globulin 4.1 g/dL 1.9-4.3 Alb/Glob 0.9 ratio Bilirubin,Total 0.4 mg/dL 0.2-1.0 Sgot/Ast 22 U/L 15-37 SGPT/Alt 30 U/L 12-78 Alkaline Phosphatase 87 U/L 45-117 Thyroid 07/22/2014 [facility] Antithyroglobulin < 1.0 0.0-0.[address] Antibody IU/mL [place], [place] [id number] [phone] Thyroid Peroxidase Antibodies < 6 IU/mL 0-34 46 Laboratory test 07/20/2014 [facility] TSH Reflex 4.40 High 0.36-3.74 [address] FT4 and/or uIU/[place] [address] FT3 [phone] Basic Metabolic 07/20/2014 [facility] Glucose 102 mg/dL 74-[address] [place] [address] [phone] BUN 20 mg/dL High 7-18 Creatinine 1.2 mg/dL 0.6-1.3 Glom Filtration Rate, Estimate >60 mL/min >60 If >60 mL/min >60 48 BUN/Creat 16.6 ratio Sodium 141 mmol/L 136-145 Potassium 3.9 mmol/L 3.5-5.1 Chloride 107 mmol/L 98-107 Carbon Dioxide 27 mmol/L 21-32 Anion Gap 7 mEq/L Low 8-16 Calcium 8.9 mg/dL 8.5-10.1 Laboratory test 07/20/2014 [facility] Magnesium 1.8 mg/dL 1.8-2.[address] [place] [address] [phone] LDL Cholesterol 07/20/2014 [facility] Cholesterol 163 mg/dL < 200 49 Profile [address] [place] [address] [phone] Triglycerides 177 mg/dL < 150 50 HDL Cholesterol 33 mg/dL > 40 51 LDL-Cholesterol 95 mg/dL < 100 52 Laboratory test 07/20/2014 [facility] Free T3 3.43 pg/mL 2.18-3.98 finding [address] [place] [address] [phone] Free T4 0.95 ng/dL 0.76-1.46 Oximetry 01/14/2009 [facility] Oximetry 96 % 93-98 [address] [place] [address] [phone] Fio2 21 21-100 Heart Rate 76 BPM Patient Status RESTING Patient Position SITTING UP IN BE <SEE NOTE> 53 Respiratory Rate 14 Oximetry 01/14/2009 [facility] Oximetry 84 % Low 93-98 [address] [place] [address] [phone] Fio2 21 21-100 Heart Rate 76 BPM Patient Status RESTING Patient Position LYING FLAT IN BE <SEE NOTE> 54 Respiratory Rate 10 Oximetry 01/13/2009 [facility] Oximetry 97 % 93-98 [address] [address] [phone] Fio2 21 21-100 Heart Rate 61 BPM Patient Status RESTING Patient Position SITTING UP IN BE <SEE NOTE> 55 Oximetry 01/13/2009 [facility] Oximetry 96 % 93-98 [address] [address] [phone] Fio2 21 21-100 O2l/Min 0 L/min Heart Rate 69 BPM Patient Status RESTING Patient Position SITTING UP IN BE <SEE NOTE> 56 Oximetry 01/12/2009 [facility] Oximetry 91 % Low 93-98 57 [address] [place] [address] [phone] Fio2 21 21-100 Heart Rate 76 BPM Patient Status RESTING Patient Position LYING FLAT IN BE <SEE NOTE> 58 Respiratory Rate 20 Oximetry 01/12/2009 [facility] Oximetry 95 % 93-98 [address] [place] [address] [phone] Fio2 21 21-100 Heart Rate 75 BPM Patient Status RESTING Patient Position [place] Oximetry 01/11/2009 [facility] Oximetry 93 % 93-98 [address] [place] [address] [phone] Fio2 21 21-100 Heart Rate 110 BPM Patient Status RESTING Patient Position 2 CBC 01/11/2009 [facility] White Blood Count 6.1 K/uL 3.4-10.5 [address] [place] [address] [phone] Red Blood Count 3.83 M/uL Low 4.20-5.80 Hemoglobin 10.4 gm/dL Low 12.8-17.0 Hematocrit 31.2 % Low 38.0-48.0 Mean Cell Volume 81.5 fl 80.0-96.0 Mean Corpuscular HGB 27.2 pg 27.0-33.0 Mean Corpuscular HGB Conc 33.3 g/dL 31.7-36.0 Platelet Count 134 K/uL Low 150-400 Red Cell Distri Width %CV 14.3 % 11.6-15.8 Mean Platelet Volume 11.0 fL High 6.6-10.6 Basic Metabolic Panel 01/11/2009 [facility] Glucose 178 mg/dL High 76-115 [address] [place] [address] [phone] BUN 25 mg/dL High 5-23 Creatinine 1.4 mg/dL 0.5-1.4 Glom Filtration Rate, Estimate 54 mL/min >60 If >60 mL/min >60 59 BUN/Creat 17.8 Sodium 135 mEq/L Low 136-145 Potassium 4.0 mEq/L 3.5-5.1 Chloride 105 mEq/L 98-107 Carbon Dioxide 20 mEq/L Low 21-32 Anion Gap 14 mEq/L 8-16 Calcium 8.1 mg/dL Low 8.5-10.1 Arterial Blood Gas 01/10/2009 [facility] Sae's Test Performed? YES [address] [place] [address] [phone] Arterial Blood Gas pH 7.34 Low 7.35-7.45 Arterial Blood Gas Pco2 34 mmHg Low 35-45 Arterial Blood Gas Po2 392 mmHg High 80-105 ABG Hco3 18 mEq/L Low 22-26 ABG Base Excess -7 mEq/L Low -2-2 ABG O2 Saturation 100 % High 90-99 Arterial Blood Gas Fio2 100 % 20-101 ABG Vent Mode SIMV ABG Patient Resp Rate 4 /MIN ABG Vent Resp Rate 12 /MIN ABG Tidal Volume 800 cc Arterial Blood Gas Peep 5 cmH2O ABG Pressure Support 10 cmH2O 0-50 Arterial Blood Gas Site L.RAD.ART. Basic Metabolic Panel 01/10/2009 [facility] Glucose 133 mg/dL High 76-115 60 [address] [place] [address] [phone] BUN 21 mg/dL 5-23 Creatinine 1.2 mg/dL 0.5-1.4 Glom Filtration Rate, Estimate >60 mL/min >60 If >60 mL/min >60 61 BUN/Creat 17.5 Sodium 136 mEq/L 136-145 Potassium 4.3 mEq/L 3.5-5.1 Chloride 104 mEq/L 98-107 Carbon Dioxide 21 mEq/L 21-32 Anion Gap 15 mEq/L 8-16 Calcium 8.0 mg/dL Low 8.5-10.1 Laboratory test 01/10/2009 [facility] Troponin-I 0.0 NG/ML 0.0-0.6 62 finding [address] [place] [address] [phone] Laboratory test 01/10/2009 [facility] Pathology Exam (SEE NOTE) 63 finding [address] [place], [place] [id number] [phone] Type And Screen 01/10/2009 [facility] Patient Blood O NEG [address] [facility] [place] [address] [phone] Antibody Screen NEGATIVE Basic Metabolic Panel 01/04/2009 [facility] Glucose 101 mg/dL 76-115 [address] [place], [place] [id number] [phone] BUN 14 mg/dL 5-23 Creatinine 1.1 mg/dL 0.5-1.4 Glom Filtration Rate, Estimate >60 mL/min >60 If >60 mL/min >60 64 BUN/Creat 12.7 Sodium 140 mEq/L 136-145 Potassium 4.2 mEq/L 3.5-5.1 Chloride 105 mEq/L 98-107 Carbon Dioxide 23 mEq/L 21-32 Anion Gap 16 mEq/L 8-16 Calcium 9.2 mg/dL 8.5-10.1 Urine Screen 01/04/2009 [facility] Urine Color YELLOW Yellow [address] [place] [address] [phone] Urine Clarity CLEAR Clear Urine Glucose - Dipstick NEGATIVE mg/dL Negative Urine Bilirubin - Dipstick NEGATIVE Negative Urine Ketone NEGATIVE mg/dL Negative Urine Specific Paul >=1.030 1.010-1.030 Urine Blood NEGATIVE Negative Urine PH 5.5 Low 6.5-7.5 Urine Protein - Dipstick NEGATIVE mg/dL Negative Urine Urobilinogen - Dipstick 0.2 E.U./dL 0.2-1.0 Urine Nitrite - Dipstick NEGATIVE Negative Urine Leuk Esterase NEGATIVE Negative CBC 01/04/2009 [facility] White Blood Count 6.0 K/uL 3.4-10.5 [address] [place] [address] [phone] Red Blood Count 4.57 M/uL 4.20-5.80 Hemoglobin 12.5 gm/dL Low 12.8-17.0 Hematocrit 37.6 % Low 38.0-48.0 Mean Cell Volume 82.3 fl 80.0-96.0 Mean Corpuscular HGB 27.4 pg 27.0-33.0 Mean Corpuscular HGB Conc 33.2 g/dL 31.7-36.0 Platelet Count 154 K/uL 150-400 Red Cell Distri Width %CV 14.6 % 11.6-15.8 Mean Platelet Volume 11.0 fL High 6.6-10.6 Basic Metabolic Panel 11/21/2008 [facility] Glucose 95 mg/dL 76-115 [address] [place] [address] [phone] BUN 16 mg/dL 5-23 Creatinine 0.8 mg/dL 0.5-1.4 Glom Filtration Rate, Estimate >60 mL/min >60 If >60 mL/min >60 65 BUN/Creat 20.0 Sodium 143 mEq/L 136-145 Potassium 3.9 mEq/L 3.5-5.1 Chloride 107 mEq/L 98-107 Carbon Dioxide 25 mEq/L 21-32 Anion Gap 15 mEq/L 8-16 Calcium 8.1 mg/dL Low 8.5-10.1 Laboratory test finding 11/21/2008 [facility] Sgot/Ast 24 U/L 16-40 [address] [place] [address] [phone] LDH 176 U/L 109-193 CK 26 U/L 26-190 CBC 11/20/2008 [facility] White Blood Count 6.5 K/uL 3.4-10.5 [address] [place] [address] [phone] Red Blood Count 3.63 M/uL Low 4.20-5.80 Hemoglobin 10.2 gm/dL Low 12.8-17.0 Hematocrit 30.5 % Low 38.0-48.0 Mean Cell Volume 84.0 fl 80.0-96.0 Mean Corpuscular HGB 28.1 pg 27.0-33.0 Mean Corpuscular HGB Conc 33.4 g/dL 31.7-36.0 Platelet Count 237 K/uL 150-400 Red Cell Distri Width %CV 15.3 % 11.6-15.8 Mean Platelet Volume 9.4 fL 6.6-10.6 Laboratory test 11/17/2008 [facility] Phosphorous 5.4 mg/dL High 2.4-4.7 66 finding [address] [place] [address] [phone] Magnesium 1.5 mg/dL Low 1.7-2.3 Cholesterol 101 mg/dL Low 120-200 Triglycerides 238 mg/dL High 0-210 Total Protein 5.4 g/dL Low 6.3-8.0 Albumin 2.2 g/dL Low 3.5-5.0 Bilirubin,Total 0.3 mg/dL 0.2-1.2 Sgot/Ast 57 U/L High 16-40 Alkaline Phosphatase 55 U/L 50-136 LDH 234 U/L High 109-193 CK 72 U/L 26-190 Prealbumin 18.2 mg/dL Low 19.0-36.0 Protime 11/17/2008 [facility] Protime 17.0 seconds High 11.8-14.6 [address] [place] [address] [phone] Inr 1.4 High 0.9-1.1 67 Differential-WBC 11/17/2008 [facility] Total Cells Counted 100 #CELLS [address] [place] [address] [phone] Band% 1 % 0-8 Neutrophils% 69 % 33-73 Lymph% 18 % 17-56 Monocyte% 10 % 0-10 Eosinophil% 2 % 0-5 Platelet Estimate NORMAL Microcytosis 0-1+ Leigha Cells 0-1+ CBC 11/17/2008 [facility] White Blood Count 5.9 K/uL 3.4-10.5 [address] [place] [address] [phone] Red Blood Count 3.70 M/uL Low 4.20-5.80 Hemoglobin 10.0 gm/dL Low 12.8-17.0 Hematocrit 30.7 % Low 38.0-48.0 Mean Cell Volume 83.0 fl 80.0-96.0 Mean Corpuscular HGB 27.0 pg 27.0-33.0 Mean Corpuscular HGB Conc 32.6 g/dL 31.7-36.0 Platelet Count 223 K/uL 150-400 Red Cell Distri Width %CV 14.8 % 11.6-15.8 Mean Platelet Volume 10.0 fL 6.6-10.6 Basic Metabolic Panel 11/17/2008 [facility] Glucose 102 mg/dL 76-115 [address] [place] [address] [phone] BUN 9 mg/dL 5-23 Creatinine 0.9 mg/dL 0.5-1.4 Glom Filtration Rate, Estimate >60 mL/min >60 If >60 mL/min >60 68 BUN/Creat 10.0 Sodium 144 mEq/L 136-145 Potassium 3.3 mEq/L Low 3.5-5.1 Chloride 108 mEq/L High 98-107 Carbon Dioxide 27 mEq/L 21-32 Anion Gap 12 mEq/L 8-16 Calcium 7.6 mg/dL Low 8.5-10.1 CBC 11/14/2008 [facility] White Blood Count 5.8 K/uL 3.4-10.5 [address] [place] [address] [phone] Red Blood Count 3.61 M/uL Low 4.20-5.80 Hemoglobin 10.1 gm/dL Low 12.8-17.0 Hematocrit 30.9 % Low 38.0-48.0 Mean Cell Volume 85.6 fl 80.0-96.0 Mean Corpuscular HGB 28.0 pg 27.0-33.0 Mean Corpuscular HGB Conc 32.7 g/dL 31.7-36.0 Platelet Count 174 K/uL 150-400 Red Cell Distri Width %CV 14.9 % 11.6-15.8 Mean Platelet Volume 10.0 fL 6.6-10.6 Basic Metabolic Panel 11/14/2008 [facility] Glucose 112 mg/dL 76-115 [address] [place] [address] [phone] BUN 14 mg/dL 5-23 Creatinine 1.2 mg/dL 0.5-1.4 Glom Filtration Rate, Estimate >60 mL/min >60 If >60 mL/min >60 69 BUN/Creat 11.6 Sodium 145 mEq/L 136-145 Potassium 3.3 mEq/L Low 3.5-5.1 Chloride 110 mEq/L High 98-107 Carbon Dioxide 29 mEq/L 21-32 Anion Gap 9 mEq/L 8-16 Calcium 7.6 mg/dL Low 8.5-10.1 Basic Metabolic Panel 11/12/2008 [facility] Glucose 123 mg/dL High 76-115 [address] [place] [address] [phone] BUN 12 mg/dL 5-23 Creatinine 1.1 mg/dL 0.5-1.4 Glom Filtration Rate, Estimate >60 mL/min >60 If >60 mL/min >60 70 BUN/Creat 10.9 Sodium 140 mEq/L 136-145 Potassium 4.2 mEq/L 3.5-5.1 Chloride 106 mEq/L 98-107 Carbon Dioxide 26 mEq/L 21-32 Anion Gap 12 mEq/L 8-16 Calcium 7.6 mg/dL Low 8.5-10.1 CBC 11/12/2008 [facility] White Blood Count 7.4 K/uL 3.4-10.5 [address] [place] [address] [phone] Red Blood Count 3.83 M/uL Low 4.20-5.80 Hemoglobin 10.8 gm/dL Low 12.8-17.0 Hematocrit 32.4 % Low 38.0-48.0 Mean Cell Volume 84.6 fl 80.0-96.0 Mean Corpuscular HGB 28.2 pg 27.0-33.0 Mean Corpuscular HGB Conc 33.3 g/dL 31.7-36.0 Platelet Count 168 K/uL 150-400 Red Cell Distri Width %CV 14.8 % 11.6-15.8 Mean Platelet Volume 10.2 fL 6.6-10.6 Laboratory test 11/11/2008 [facility] Pathology Exam (SEE NOTE) 71 finding [address] [place] [address] [phone] Urine Screen 11/11/2008 [facility] Urine Color YELLOW Yellow 72 [address] [place] [address] [phone] Urine Clarity CLEAR Clear Urine Glucose - Dipstick NEGATIVE mg/dL Negative Urine Bilirubin - Dipstick NEGATIVE Negative Urine Ketone NEGATIVE mg/dL Negative Urine Specific Paul >=1.030 1.010-1.030 Urine Blood NEGATIVE Negative Urine PH 5.0 Low 6.5-7.5 Urine Protein - Dipstick TRACE mg/dL Negative Urine Urobilinogen - Dipstick 0.2 E.U./dL 0.2-1.0 Urine Nitrite - Dipstick NEGATIVE Negative Urine Leuk Esterase NEGATIVE Negative Type And Screen 11/10/2008 [facility] Patient Blood Type O NEG [address] [place] [address] [phone] Antibody Screen NEGATIVE Basic Metabolic Panel 11/10/2008 [facility] Glucose 97 mg/dL 76-115 [address] [place] [address] [phone] BUN 17 mg/dL 5-23 Creatinine 1.2 mg/dL 0.5-1.4 Glom Filtration Rate, Estimate >60 mL/min >60 If >60 mL/min >60 73 BUN/Creat 14.1 Sodium 136 mEq/L 136-145 Potassium 4.0 mEq/L 3.5-5.1 Chloride 103 mEq/L 98-107 Carbon Dioxide 22 mEq/L 21-32 Anion Gap 15 mEq/L 8-16 Calcium 9.4 mg/dL 8.5-10.1 CBC 11/10/2008 [facility] White Blood Count 8.9 K/uL 3.4-10.5 74 [address] [place] [address] [phone] Red Blood Count 4.50 M/uL 4.20-5.80 Hemoglobin 12.5 gm/dL Low 12.8-17.0 Hematocrit 37.4 % Low 38.0-48.0 Mean Cell Volume 83.1 fl 80.0-96.0 Mean Corpuscular HGB 27.8 pg 27.0-33.0 Mean Corpuscular HGB Conc 33.4 g/dL 31.7-36.0 Platelet Count 201 K/uL 150-400 Red Cell Distri Width %CV 14.4 % 11.6-15.8 Mean Platelet Volume 9.8 fL 6.6-10.6 CBC 10/27/2008 [facility] White Blood Count 6.3 K/uL 3.4-10.5 [address] [place] [address] [phone] Red Blood Count 5.23 M/uL 4.20-5.80 Hemoglobin 14.5 gm/dL 12.8-17.0 Hematocrit 43.5 % 38.0-48.0 Mean Cell Volume 83.2 fl 80.0-96.0 Mean Corpuscular HGB 27.7 pg 27.0-33.0 Mean Corpuscular HGB Conc 33.3 g/dL 31.7-36.0 Platelet Count 308 K/uL 150-400 Red Cell Distri Width %CV 14.6 % 11.6-15.8 Mean Platelet Volume 10.1 fL 6.6-10.6 1 I10 E78.2 R73.9 Z12.5 2 THIS ASSAY IS NOT INTENDED A CANCER SCREENING TEST The concentration of PSA in a given specimen, determined with assays from different manufacturers, can vary due to differences in assay methods and reagent specificity. Values obtained from different assay methods cannot be used interchangeably. Method: Siemens RegainGo [place] Chemiluminescent immunoassay. 3 Reference Guidelines*: Desirable: ........... < 200 mg/dL Borderline High: ..... 200-239 mg/dL High: ................ >=240 mg/dL * The National Cholesterol Education Program (NCEP) 4 Reference Guidelines*: Normal: ............. < 150 mg/dL Borderline High: .... 150-199 mg/dL High: ............... 200-499 mg/dL Very High: .......... > 500 mg/dL * Source: National Cholesterol Education Program (NCEP) 5 Reference Guidelines*: Low HDL: ..... < 40 mg/dL Normal: ..... 40-60 mg/dL Desirable: ... > 60 mg/dL *The National Cholesterol Education Program(NCEP) 6 Reference Guidelines*: Optimal:........... <100 mg/dL Near Optimal....... 100-129 mg/dL Borderline High.... 130-159 mg/dL High............... 160-189 mg/dL Very High.......... >=190 mg/dL * Source: National Cholesterol Education Program (NCEP) 7 Note: Persistent reduction for 3 months or more in an eGFR <60 mL/min/1.73 m2 defines CKD. Patients with eGFR values >/=60 mL/min/1.73 m2 may also have CKD if evidence of persistent proteinuria is present. The original MDRD equation for estimated GFR is not valid for patients less than 18 years of age. Additional information may be found at www.kdoqi.org. 8 Elevated levels of HbA1c suggest the need for more aggressive treatment of glycemia. The [place] [employer] recommends that a primary goal of therapy should be a HbA1c of <7% and that physicians should re-evaluate the treatment regimen in patients with HbA1c values consistently >8%. 9 E78.2 10 Note: Persistent reduction for 3 months or more in an eGFR <60 mL/min/1.73 m2 defines CKD. Patients with eGFR values >/=60 mL/min/1.73 m2 may also have CKD if evidence of persistent proteinuria is present. The original MDRD equation for estimated GFR is not valid for patients less than 18 years of age. Additional information may be found at www.kdoqi.org. 11 Reference Guidelines*: Desirable: ........... < 200 mg/dL Borderline High: ..... 200-239 mg/dL High: ................ >=240 mg/dL * The National Cholesterol Education Program (NCEP) 12 Reference Guidelines*: Normal: ............. < 150 mg/dL Borderline High: .... 150-199 mg/dL High: ............... 200-499 mg/dL Very High: .......... > 500 mg/dL * Source: National Cholesterol Education Program (NCEP) 13 Reference Guidelines*: Low HDL: ..... < 40 mg/dL Normal: ..... 40-60 mg/dL Desirable: ... > 60 mg/dL *The National Cholesterol Education Program(NCEP) 14 Reference Guidelines*: Optimal:........... <100 mg/dL Near Optimal....... 100-129 mg/dL Borderline High.... 130-159 mg/dL High............... 160-189 mg/dL Very High.......... >=190 mg/dL * Source: National Cholesterol Education Program (NCEP) 15 Elevated levels of HbA1c suggest the need for more aggressive treatment of glycemia. The [place] [employer] recommends that a primary goal of therapy should be a HbA1c of <7% and that physicians should re-evaluate the treatment regimen in patients with HbA1c values consistently >8%. 16 I10 E78.2 R73.9 17 Note: Persistent reduction for 3 months or more in an eGFR <60 mL/min/1.73 m2 defines CKD. Patients with eGFR values >/=60 mL/min/1.73 m2 may also have CKD if evidence of persistent proteinuria is present. The original MDRD equation for estimated GFR is not valid for patients less than 18 years of age. Additional information may be found at www.kdoqi.org. 18 Elevated levels of HbA1c suggest the need for more aggressive treatment of glycemia. The [place] [employer] recommends that a primary goal of therapy should be a HbA1c of <7% and that physicians should re-evaluate the treatment regimen in patients with HbA1c values consistently >8%. 19 Reference Guidelines*: Desirable: ........... < 200 mg/dL Borderline High: ..... 200-239 mg/dL High: ................ >=240 mg/dL * The National Cholesterol Education Program (NCEP) 20 Reference Guidelines*: Normal: ............. < 150 mg/dL Borderline High: .... 150-199 mg/dL High: ............... 200-499 mg/dL Very High: .......... > 500 mg/dL * Source: National Cholesterol Education Program (NCEP) 21 Reference Guidelines*: Low HDL: ..... < 40 mg/dL Normal: ..... 40-60 mg/dL Desirable: ... > 60 mg/dL *The National Cholesterol Education Program(NCEP) 22 Reference Guidelines*: Optimal:........... <100 mg/dL Near Optimal....... 100-129 mg/dL Borderline High.... 130-159 mg/dL High............... 160-189 mg/dL Very High.......... >=190 mg/dL * Source: National Cholesterol Education Program (NCEP) 23 I10 E78.2 E66.09 R73.9 24 Elevated levels of HbA1c suggest the need for more aggressive treatment of glycemia. The [place] [employer] recommends that a primary goal of therapy should be a HbA1c of <7% and that physicians should re-evaluate the treatment regimen in patients with HbA1c values consistently >8%. 25 Reference Guidelines*: Desirable: ........... < 200 mg/dL Borderline High: ..... 200-239 mg/dL High: ................ >=240 mg/dL * The National Cholesterol Education Program (NCEP) 26 Reference Guidelines*: Normal: ............. < 150 mg/dL Borderline High: .... 150-199 mg/dL High: ............... 200-499 mg/dL Very High: .......... > 500 mg/dL * Source: National Cholesterol Education Program (NCEP) 27 Reference Guidelines*: Low HDL: ..... < 40 mg/dL Normal: ..... 40-60 mg/dL Desirable: ... > 60 mg/dL *The National Cholesterol Education Program(NCEP) 28 Reference Guidelines*: Optimal:........... <100 mg/dL Near Optimal....... 100-129 mg/dL Borderline High.... 130-159 mg/dL High............... 160-189 mg/dL Very High.......... >=190 mg/dL * Source: National Cholesterol Education Program (NCEP) 29 Note: Persistent reduction for 3 months or more in an eGFR <60 mL/min/1.73 m2 defines CKD. Patients with eGFR values >/=60 mL/min/1.73 m2 may also have CKD if evidence of persistent proteinuria is present. The original MDRD equation for estimated GFR is not valid for patients less than 18 years of age. Additional information may be found at www.[email or web address].org. 30 Instrument flagged sample for slide review. Less than 10% Bands seen, no other immature WBC's seen. RBC morphology essentially normal. Platelet estimate= Normal 31 I10 E78.2 R73.9 32 Note: Persistent reduction for 3 months or more in an eGFR <60 mL/min/1.73 m2 defines CKD. Patients with eGFR values >/=60 mL/min/1.73 m2 may also have CKD if evidence of persistent proteinuria is present. The original MDRD equation for estimated GFR is not valid for patients less than 18 years of age. Additional information may be found at [email or web address]. 33 Reference Guidelines*: Desirable: ........... < 200 mg/dL Borderline High: ..... 200-239 mg/dL High: ................ >=240 mg/dL * The National Cholesterol Education Program (NCEP) 34 Reference Guidelines*: Normal: ............. < 150 mg/dL Borderline High: .... 150-199 mg/dL High: ............... 200-499 mg/dL Very High: .......... > 500 mg/dL * Source: National Cholesterol Education Program (NCEP) 35 Reference Guidelines*: Low HDL: ..... < 40 mg/dL Normal: ..... 40-60 mg/dL Desirable: ... > 60 mg/dL *The National Cholesterol Education Program(NCEP) 36 Reference Guidelines*: Optimal:........... <100 mg/dL Near Optimal....... 100-129 mg/dL Borderline High.... 130-159 mg/dL High............... 160-189 mg/dL Very High.......... >=190 mg/dL * Source: National Cholesterol Education Program (NCEP) 37 Elevated levels of HbA1c suggest the need for more aggressive treatment of glycemia. The [place] [employer] recommends that a primary goal of therapy should be a HbA1c of <7% and that physicians should re-evaluate the treatment regimen in patients with HbA1c values consistently >8%. 38 Instrument flagged sample for slide review. Less than 10% Bands seen, no other immature WBC's seen. RBC morphology essentially normal. Platelet estimate=NORMAL 39 Elevated levels of HbA1c suggest the need for more aggressive treatment of glycemia. The [place] [employer] recommends that a primary goal of therapy should be a HbA1c of <7% and that physicians should re-evaluate the treatment regimen in patients with HbA1c values consistently >8%. 40 Reference Guidelines*: Desirable: ........... < 200 mg/dL Borderline High: ..... 200-239 mg/dL High: ................ >=240 mg/dL * The National Cholesterol Education Program (NCEP) 41 Reference Guidelines*: Normal: ............. < 150 mg/dL Borderline High: .... 150-199 mg/dL High: ............... 200-499 mg/dL Very High: .......... > 500 mg/dL * Source: National Cholesterol Education Program (NCEP) 42 Reference Guidelines*: Low HDL: ..... < 40 mg/dL Normal: ..... 40-60 mg/dL Desirable: ... > 60 mg/dL *The National Cholesterol Education Program(NCEP) 43 Reference Guidelines*: Optimal:........... <100 mg/dL Near Optimal....... 100-129 mg/dL Borderline High.... 130-159 mg/dL High............... 160-189 mg/dL Very High.......... >=190 mg/dL * Source: National Cholesterol Education Program (NCEP) 44 Note: Persistent reduction for 3 months or more in an eGFR <60 mL/min/1.73 m2 defines CKD. Patients with eGFR values >/=60 mL/min/1.73 m2 may also have CKD if evidence of persistent proteinuria is present. The original MDRD equation for estimated GFR is not valid for patients less than 18 years of age. Additional information may be found at [email or web address]. 45 Low positive Thyroglobulin antibodies are seen in a portion of the asymptomatic populations. Antithyroglobulin antibodies measured by [facility] [place] [employer] 46 Performed at: [facility] [id number] Pain Management Nurse Practitioner: Shannan Andujar MD, Phone: [phone] QUERY: Reflex add FT3? Y QUERY: Reflex add FT4? Y 48 Note: Persistent reduction for 3 months or more in an eGFR <60 mL/min/1.73 m2 defines CKD. Patients with eGFR values >/=60 mL/min/1.73 m2 may also have CKD if evidence of persistent proteinuria is present. The original MDRD equation for estimated GFR is not valid for patients less than 18 years of age. Additional information may be found at [email or web address]. 49 Reference Guidelines*: Desirable: ........... < 200 mg/dL Borderline High: ..... 200-239 mg/dL High: ................ >=240 mg/dL * The National Cholesterol Education Program (NCEP) 50 Reference Guidelines*: Normal: ............. < 150 mg/dL Borderline High: .... 150-199 mg/dL High: ............... 200-499 mg/dL Very High: .......... > 500 mg/dL * Source: National Cholesterol Education Program (NCEP) 51 Reference Guidelines*: Low HDL: ..... < 40 mg/dL Normal: ..... 40-60 mg/dL Desirable: ... > 60 mg/dL *The National Cholesterol Education Program(NCEP) 52 Reference Guidelines*: Optimal:........... <100 mg/dL Near Optimal....... 100-129 mg/dL Borderline High.... 130-159 mg/dL High............... 160-189 mg/dL Very High.......... >=190 mg/dL * Source: National Cholesterol Education Program (NCEP) 53 SITTING UP IN BED 54 LYING FLAT IN BED 55 SITTING UP IN BED 56 SITTING UP IN BED 57 Specimen: [id number] - TEST: AN COMMENTS TO CREDIT CARD INTERVIEWER: ABSCESS OF MONS PUBIS ABSCESS SPECIMEN COMMENTS: MONS PUBIS ABSCESS DESCRIPTION: SUCTIONED SPECIFY ANTIBIOTIC: TIGACYCLINE TEST: AN Specimen: [id number] - TEST: FLU SPECIMEN COMMENTS: MONS PUBIS ABSCESS DESCRIPTION: SUCTIONED TEST: FLU 58 LYING FLAT IN BED 59 Note: Persistent reduction for 3 months or more in an eGFR <60 mL/min/1.73 m2 defines CKD. Patients with eGFR values >/=60 mL/min/1.73 m2 may also have CKD if evidence of persistent proteinuria is present. The original MDRD equation for estimated GFR is not valid for patients less than 18 years of age. Additional information may be found at [email or web address]. 60 Specimen: [id number] - TESTS: C7, TROP COMMENTS TO CREDIT CARD INTERVIEWER: DRAWN BY CALLED BMP TO MADELYN Arce AT 1639 01/10/09 by LAB.OPT TEST: C7 QUERY: IS THE PATIENT FASTING? Y QUERY: CARD 1=GLU, BUN, CRE, NA, K, CL, CO2, CALCIUM + GAP TEST: TROP 61 Note: Persistent reduction for 3 months or more in an eGFR <60 mL/min/1.73 m2 defines CKD. Patients with eGFR values >/=60 mL/min/1.73 m2 may also have CKD if evidence of persistent proteinuria is present. The original MDRD equation for estimated GFR is not valid for patients less than 18 years of age. Additional information may be found at [email or web address]. 62 0 - 0.6 NG/ML: NO EVIDENCE OF MYOCARDIAL INJURY 0.7 - 1.5 NG/ML: MILD ELEVATION, SUGGESTING POSSIBLE MYOCARDIAL INJURY > 1.5 NG/ML: CONSISTENT WITH MYOCARDIAL INJURY 63 OPERATION/PROCEDURE Closure of ileostomy DIAGNOSIS: "ILEOSTOMY, CLOSURE": CHRONICALLY INFLAMED ILEUM, CONSISTENT WITH CLINICAL ILEOSTOMY SITE. BRANDON/chandana 1220 GROSS Received in formalin labeled "OLD ILEOSTOMY" is a ring shaped piece of skin measuring 2.5 x 1.5 cm. which is attached to subcutaneous tissue measuring 5.0 x 3.0 x 2.3 cm. Within the skin ellipse are two segments of bowel. Upon opening both segments of bowel are connected to the skin. The bowel mucosa is unremarkable. There is no evidence of tumor nor necrosis. Rn Acute Care sections are submitted in blocks A and B. AMY/chandana MICROSCOPIC Chronically irritated inflamed and reactive epidermis lie incontinuity with small bowel type mucosa. The small bowel mucosa lacks evidence of dysplasia and malignancy and overall the architecture is consistent with the stated site of ileostomy stoma. PRE OPERATIVE DIAGNOSIS Ileostomy closure REVIEW CODE CODE: I ARELIS Newell MD 01/12/09 64 Note: Persistent reduction for 3 months or more in an eGFR <60 mL/min/1.73 m2 defines CKD. Patients with eGFR values >/=60 mL/min/1.73 m2 may also have CKD if evidence of persistent proteinuria is present. The original MDRD equation for estimated GFR is not valid for patients less than 18 years of age. Additional information may be found at [email or web address]. 65 Note: Persistent reduction for 3 months or more in an eGFR <60 mL/min/1.73 m2 defines CKD. Patients with eGFR values >/=60 mL/min/1.73 m2 may also have CKD if evidence of persistent proteinuria is present. The original MDRD equation for estimated GFR is not valid for patients less than 18 years of age. Additional information may be found at [email or web address]. 66 Specimen: [id number] - TESTS: PHOS, MG, CHOL, TRIG, TP, ALB, BILT, SGOT, ALK, LDH, CPK, PALB IS THE PATIENT FASTING? FASTING TEST: PHOS TEST: MG TEST: CHOL TEST: TRIG TEST: TP TEST: ALB TEST: BILT TEST: SGOT TEST: ALK TEST: LDH TEST : CPK TEST: PALB Specimen: [id number] - TESTS: DIFF, PT IS PATIENT ON HEPARIN PROTOCOL ? N IS PATIENT ON ANTICOAGULANTS? NONE TEST: DIFF TEST: PT QUERY: Anticoagulant Therapy? QUERY: Date of Last Dose: QUERY: Time of Last Dose: Specimen: [id number] - TESTS: DIFF, PT IS PATIENT ON HEPARIN PROTOCOL ? N IS PATIENT ON ANTICOAGULANTS? NONE TEST: DIFF TEST: PT QUERY: Anticoagulant Therapy? QUERY : Date of Last Dose: QUERY: Time of Last Dose: Specimen: [id number] - TESTS: PHOS , MG, CHOL, TRIG, TP, ALB, BILT, SGOT, ALK, LDH, CPK, PALB IS THE PATIENT FASTING? FASTING PICC LINE DRAW TEST: PHOS TEST: MG TEST: CHOL TEST: TRIG TEST: TP TEST: ALB TEST: BILT TEST: SGOT TEST: ALK TEST: LDH TEST: CPK TEST: PALB Specimen: [id number] - TESTS: PHOS, MG, CHOL, TRIG, TP, ALB, BILT, SGOT, ALK, LDH, CPK, PALB IS THE PATIENT FASTING? FASTING PICC LINE DRAW TEST: PHOS TEST: MG TEST : CHOL TEST: TRIG TEST: TP TEST: ALB TEST: BILT TEST: SGOT TEST: ALK TEST: LDH TEST : CPK TEST: PALB Specimen: [id number] - TESTS: DIFF, PT IS PATIENT ON HEPARIN PROTOCOL ? N IS PATIENT ON ANTICOAGULANTS? NONE TEST: DIFF TEST: PT QUERY: Anticoagulant Therapy? QUERY: Date of Last Dose: QUERY: Time of Last Dose: 67 THERAPEUTIC INR RANGE: 2.0 - 3.0 DVT, Pulmonary embolus, prophylaxis against venous thrombosis or systemic embolization in high risk patients. 2.5 - 3.5 Mechanical heart valves 68 Note: Persistent reduction for 3 months or more in an eGFR <60 mL/min/1.73 m2 defines CKD. Patients with eGFR values >/=60 mL/min/1.73 m2 may also have CKD if evidence of persistent proteinuria is present. The original MDRD equation for estimated GFR is not valid for patients less than 18 years of age. Additional information may be found at [email or web address]. 69 Note: Persistent reduction for 3 months or more in an eGFR <60 mL/min/1.73 m2 defines CKD. Patients with eGFR values >/=60 mL/min/1.73 m2 may also have CKD if evidence of persistent proteinuria is present. The original MDRD equation for estimated GFR is not valid for patients less than 18 years of age. Additional information may be found at [email or web address]. 70 Note: Persistent reduction for 3 months or more in an eGFR <60 mL/min/1.73 m2 defines CKD. Patients with eGFR values >/=60 mL/min/1.73 m2 may also have CKD if evidence of persistent proteinuria is present. The original MDRD equation for estimated GFR is not valid for patients less than 18 years of age. Additional information may be found at [email or web address]. 71 OPERATION/PROCEDURE Exploratory laparotomy; resection of sigmoid colon DIAGNOSIS: "PROXIMAL SIGMOID + SIGMOID COLON WITH DIVERTICULITIS": TWO SEGMENTS OF LARGE INTESTINES DEMONSTRATING DIVERTICULAR DISEASE, WITH EVIDENCE OF ONGOING RUPTURE, HEALING, WELL UNINFLAMMED DIVERTICULAR DISEASE. WS/chandana 1123 GROSS The specimen is received in a single container additionally "PROXIMAL SIGMOID AND SIGMOID COLON WITH DIVERTICULITIS". This contains two separate undesignated segments of colon, each approximately 5.5 cm. in length with a open dimension circumference of 5.0 cm. There is a generous amount of mesenteric adipose tissue in both segments. One segment has approximately one half dozen diverticuli, some associated with hemorrhage and fat necrosis. I do not see evidence of a suspicious mass nor polyp formation. The other segment has more definite evidence of fat necrosis with fresh hemorrhage. This also has approximately one half dozen diverticuli. Margins of both segment appear to be viable, and these are submitted as follows: A-C=first segment, D-F= second segment. WS/chandana MICROSCOPIC These sections demonstrate both inactive, and acute and chronically inflamed diverticuli in both parts. Deeply diving colonic mucosal lined diverticuli demonstrate attenuated muscularis propria with subadjacent chronic inflammation and fibrosis. In certain regions, numerous acute and chronic inflammatory cells accompany fat necrosis and foreign body giant cell reactions indicative of recent rupture and healing. The margins of excision on both segments appear to be viable. No evidence of dysplasia, nor malignancy is appreciated. PRE OPERATIVE DIAGNOSIS Acute sigmoid colon diverticulitis recurrent + worsening REVIEW CODE CODE: I ARELIS Newell MD 11/16/08 72 Specimen: [id number] - TEST: ASHLEY CALLED ROSINA AT 0619 11/11/08 by LAB.LMT COMMENTS TO CREDIT CARD INTERVIEWER: PREOP UA TEST: UA QUERY: IS THIS <CULTURE IF INDICATED>? Y QUERY: SOURCE: [facility] 73 Note: Persistent reduction for 3 months or more in an eGFR <60 mL/min/1.73 m2 defines CKD. Patients with eGFR values >/=60 mL/min/1.73 m2 may also have CKD if evidence of persistent proteinuria is present. The original MDRD equation for estimated GFR is not valid for patients less than 18 years of age. Additional information may be found at [email or web address]. 74 Specimen: [id number] - TEST: CBC RESULTS TO CT CALLED JONI Montgomery IN CT AT 0955 11/10/08 by LAB.REVAS CALLED JYOTI Rivera AT DR HAIDER WHO STATED THEY DID IN FACT NEED THESE RESULTS AT 0956 11/10/08 by LAB.KLS FAXED PER REQUEST - @ 56 11/10/08,(LAB.KLS) TEST: CBC Procedures Date Code Description Status 09/10/2017 56480 EKG-Tracing And Report Completed 02/18/2017 18433 Radiologic Exam Hip Unilateral With Pelvis 2-3 Views Completed 09/11/2015 60391 EKG-Tracing And Report Completed 07/27/2015 32528 Bronchospasm Provocation Evaluation Multi Spirometric Completed Determinati 07/27/2015 45870 Spirometry Completed 08/03/2014 29332 Echocardiogram Complete Completed 07/20/2014 85947 EKG-Tracing And Report Completed 01/10/2009 98080 Closure enterostomy, with resection and colorectal Completed anastomosis 01/10/2009 62833 Closure enterostomy, with resection and colorectal Completed anastomosis 11/11/2008 54340 Colectomy with resec & colostomy or ileostomy and create Completed mucofist Encounters Type Date Location Provider Dx Diagnosis Office Visit 04/10/2018 Urology Kimberley Russell, Cely97.20 Elevated prostate 10:45a M.D. specific antigen [PSA] N28.1 Cyst of kidney, acquired Office Visit 03/11/2018 11:00a Primary Care Evelia Sen, J06.9 Acute upper Office MS, [employer], CNM respiratory infection, unspecified J01.90 Acute sinusitis, unspecified J30.9 Allergic rhinitis, unspecified Z12.5 Encounter for screening for malignant neoplasm of prostate Z23 Encounter for immunization Office Visit 03/04/2018 Primary [facility] [place] E78.2 Mixed hyperlipidemia 1:30p Office Evelia, MS, [employer], CNM N28.1 Cyst of kidney, acquired Z12.5 Encounter for screening for malignant neoplasm of prostate J01.90 Acute sinusitis, unspecified J06.9 Acute upper respiratory infection, unspecified K21.9 Gastro-esophageal reflux disease without esophagitis Office Visit 02/04/2018 10:30a [facility] [place], J01.90 Acute sinusitis, Office ILYA Osuna unspecified Office Visit 09/10/2017 3:00p Cardiology Kendrick Grissom MD I71.2 Thoracic aortic Office aneurysm, without rupture R00.1 Bradycardia, unspecified Office Visit 08/13/2017 9:40a Primary Care Lavern Yusuf, E78.2 Mixed hyperlipidemia Office MD I10 Essential (primary) hypertension R73.9 Hyperglycemia, unspecified N28.1 Cyst of kidney, acquired I71.9 Aortic aneurysm of unspecified site, without rupture Office Visit 05/13/2017 Primary Care Madelin J01.90 Acute sinusitis, 10:40a Office MD Lavern unspecified Office Visit 04/02/2017 Orthopaedic Jeremiah Taylor, M25.551 Pain in right hip 1:30p Office M.D. Office Visit 03/18/2017 Primary Care Lidia, H60.92 Unspecified otitis 1:30p Office Emmy Burns externa, left ear Office Visit 02/18/2017 Orthopaedic Jeremiah Taylor, M25.551 Pain in right hip 3:00p Office M.D. Office Visit 02/05/2017 Primary Care Madelin I10 Essential 9:40a Office MD Lavern (primary) hypertension E78.2 Mixed hyperlipidemia R73.9 Hyperglycemia, unspecified M25.551 Pain in right hip Z23 Encounter for immunization Office Visit 10/07/2016 10:00a Primary Care Lavern Yusuf, R73.9 Hyperglycemia, Office unspecified E78.2 Mixed hyperlipidemia I10 Essential (primary) hypertension M25.551 Pain in right hip Office Visit 06/07/2016 10:00a Primary Care Lavern Yusuf, I10 Essential ( primary) Office MD hypertension E78.2 Mixed hyperlipidemia J30.9 Allergic rhinitis, unspecified R73.9 Hyperglycemia, unspecified Office Visit 03/01/2016 3:40p Primary Care Lavern Yusuf, J01.90 Acute sinusitis, Office MD unspecified Office Visit 01/26/2016 9:40a Primary Care Lavern Yusuf, I10 Essential ( primary) Office MD hypertension E78.2 Mixed hyperlipidemia D22.9 Melanocytic nevi, unspecified E66.09 Other obesity due to excess calories Z23 Encounter for immunization Office Visit 10/09/2015 2:40p Primary Care Lavern Yusuf, M79.674 Pain in right Office MD toe(s) G58.9 Mononeuropathy, unspecified Office Visit 09/11/2015 9:00a Cardiology Office Adeola Murphy I10 Essential (primary) A., ANP hypertension E78.2 Mixed hyperlipidemia I71.9 Aortic aneurysm of unspecified site, without rupture Office Visit 07/11/2015 10:00a Primary Care Lavern Yusuf, E78.2 Mixed hyperlipidemia Office MD I10 Essential (primary) hypertension G47.31 Primary central sleep apnea J43.2 Centrilobular emphysema R59.0 Localized enlarged lymph nodes I71.9 Aortic aneurysm of unspecified site, without rupture K21.9 Gastro-esophageal reflux disease without esophagitis Office Visit 01/03/2015 10:30a Primary Care Isabel Garcia, I10 Essential ( primary) Office M.DGriffin hypertension E78.2 Mixed hyperlipidemia J30.2 Other seasonal allergic rhinitis Office Visit 09/05/2014 11:40a Cardiology Office Kendrick Grissom, 401.1 Hypertension Benign 441.9 Aneurysm Aortic W/O Rupture Unspec Site Office Visit 07/20/2014 8:40a Cardiology Office Kendrick Grissom 401.1 Hypertension Benign 441.9 Aneurysm Aortic W/O Rupture Unspec Site Office Visit 06/21/2014 10:05a Primary Care Isabel Garcia, 401.1 Hypertension Benign Office M.D. 272.2 Hyperlipidemia Mixed 327.21 Primary Central Sleep Apnea 787.1 Heartburn 477.8 Rhinitis Allergic Due To Other Allergen 724.3 Sciatica 441.9 Aneurysm Aortic W/O Rupture Unspec Site 437.7 Amnesia Global Transient Office Visit 05/24/2014 2:39p Daisy Casiano, 780.2 Syncope & [facility] 276.51 Dehydration Office Visit 11/10/2008 8:30a Surgical Office Brandon Schultz 562.11 Diverticulitis Kannan Duque MD W/O Hemorrhage Office Visit 10/31/2008 2:45p Surgical Office Brandon Schultz 562.11 Diverticulitis Kannan Duque MD W/O Hemorrhage Office Visit 10/24/2008 10:30a Surgical Office Brandon Schultz 562.11 Diverticulitis Kannan Duque MD W/O Hemorrhage Plan of Treatment Future Appointment(s):10/08/2018 10:00 am - Kimberley Russell M.D. at [id number] 10:30 am - Evelia Sen MS, [employer], CNM at Primary Care [id number]/10 - Kimberley Russell M.D.R97.20 Elevated prostate specific antigen [PSA] Comments:Patient with a slightly elevated PSA given his age. I recommended repeat the PSA next week and see what that value is. If The PSA continues to rise then we'll do a prostate biopsy. Patient to follow-up with me in 6 months.N28.1 Cyst of kidney, acquiredComments:Renal cysts appear to be benign and simple. We'll repeat a renal ultrasound in 1 year
--- NOTE | 2018-05-05 18:33 | UC ---
Throat Pain/Nasal Giancarlo HPI - HPI Summary HPI Summary: Patient presents with 3 days of progressive sinus pressure, postnasal drip, mild sore throat, and ear pressure. Patient with a history of recurrent sinus infections and states this feels similar. Patient's been using any as well as his prescription allergies nasal spray with little improvement. Patient took 1 Tylenol earlier today for pressure with little relief. No cough no shortness of breath no nausea vomiting. No fevers, chills, rashes. Patient does have a history of sinus infection states this feels similar. Patient states his last sinus infection was approximately 2 months ago. Patient does not smoke. Patient does not have any hobbies expose him to chemicals. Patient medications reviewed this visit. - History of Current Complaint Chief Complaint: UCRespiratory Stated Complaint: SINUS COMPLAINT Time Seen by Provider: 05/05/18 18:31 Hx Obtained From: Patient Onset/Duration: Gradual Onset Severity: Mild Pain Intensity: 2 - Allergies/Home Medications Allergies/Adverse Reactions: Allergies Allergy/AdvReac Type Severity Reaction Status Date / Time No Known Allergies Allergy Verified 05/05/18 17:54 Home Medications: Home Medications Aspirin 81 mg CHEW TAB* [Aspirin Low Dose TAB*] 81 mg PO DAILY 05/05/18 [ History Confirmed 05/05/18] Hydrochlorothiazide TAB* [Hydrodiuril TAB*] 25 mg PO DAILY 05/05/18 [History Confirmed 05/05/18] Ipratropium Br (Nf)0.03% Nasal [Ipratropium [place]] 30 ml NS DAILY 05/05/18 [ History Confirmed 05/05/18] Lisinopril TAB* [Prinivil TAB*] 40 mg PO DAILY 05/05/18 [History Confirmed 05/05] Charmco-3 Fatty Acids/Fish Oil [Fish Oil 1,000 mg Capsule] 1 each PO DAILY [History Confirmed 05/05/18] Omeprazole 20 mg PO DAILY 05/05/18 [History Confirmed 05/05/18] Simvastatin 20 mg PO DAILY 05/05/18 [History Confirmed 05/05/18] amLODIPine TAB* [Norvasc 5 mg TAB*] 5 mg PO DAILY 05/05/18 [History Confirmed ] PMH/Surg Hx/FS Hx/Imm Hx Previously Healthy: Yes Endocrine History: Diabetes Cardiovascular History: Hypertension Respiratory History: COPD - Surgical History Surgical History: Yes Surgery Procedure, Year, and Place: Colon section - Family History Known Family History: Positive: Non-Contributory - Social History Occupation: Retired Lives: With Family Alcohol Use: None Substance Use Type: None Smoking Status (MU): Never Smoked Tobacco Review of Systems All Other Systems Reviewed And Are Negative: Yes Constitutional: Positive: Fatigue Skin: Positive: Negative ENT: Positive: Nasal Discharge, Sinus Congestion, Sinus Pain/Tenderness Respiratory: Positive: Negative Physical Exam - Summary Physical Exam Summary: Vital Signs Reviewed: Yes A+Ox3, no distress Eyes: Conjunctiva Clear, ROBB. EOM intact and full ENT: Hearing grossly normal TM x 2 clear - hearing assist devices, turbinates inflammed and boggy, + PND, maxillary sinus pain R>L , mmoist, uvula midline, no exudate, no erythema Neck: Positive: Supple Respiratory: Positive: No respiratory distress, No accessory muscle use + CTA throughout no w/r Cardiovascular: RRR nl s1, s2 no m/r CBT <2 sec abd soft + BS nt/nd no guarding, no distension Musculoskeletal Exam: GASTELUM x 4 without difficulty Strength Intact, ROM Intact Neurological: Positive: Alert, + sensation throughout Psychological: Positive: Normal Response To Family Skin: Positive: no rash, no ecchymosis Triage Information Reviewed: Yes Vital Signs: Initial Vital Signs Temp 97.4 F 05/05/18 17:49 Pulse 77 05/05/18 17:49 Resp 18 05/05/18 17:49 BP 159/71 05/05/18 17:49 Pulse Ox 96 05/05/18 17:49 Throat Pain/Nasal Course/Dx - Course Course Of Treatment: Patient presents to urgent care with 3 days progressive sinus pressure, postnasal drip, sore throat, and facial pressure. Patient with a history of recurrent sinusitis. Patient is on prescription allergy nasal spray as well as using a pocket with little improvement. On exam vital signs are stable. Patient does have mild elevated blood pressure but has a history of this and takes medication. Patient does not take [id number] pseudoephedrine. Patient's exam consistent with rhinosinusitis. After discussion with patient we'll start Augmentin. Recommend humidified air. Hydration. Recommend Claritin without the decongestant. Return precautions discussed. Patient comfortable agreement with plan. - Differential Dx/Diagnosis Provider Diagnosis: Rhinosinusitis Discharge - Sign-Out/Discharge Documenting (check all that apply): Patient Departure All imaging exams completed and their final reports reviewed: No Studies - Discharge Plan Condition: Stable Disposition: HOME Prescriptions: Amoxicillin/Clavulanate TAB* [Augmentin TAB 875*] 875 mg PO BID #20 tab Patient Education Materials: Rhinosinusitis (ED) Referrals: Lavern Yusuf MD [Primary Care Provider] - Additional Instructions: - Stay well hydrated. Drink plenty of non-alcoholic, non-caffinated beverages. - Alternate ibuprofen (Advil, Motrin) 600mg and Tylenol every 3 hours for pain or fever. Take with food. Do NOT take for more than 4-5 days. - These infections are spread by secretions - do NOT share eating or drinking utensils - clean items you share with other people such as cell phones, computer mouse, TV remote, computer tablets,etc. Once you have been antibiotics for 2 days, change your toothbrush and your pillowcase. - get plenty of restful sleep - humidify the air in the room where you sleep - boil water, run a hot steam shower, vaporizer, cups of water by heat register - okay to take over the counter decongestant and cough medication - a trial of Claritin may help with your secretions - use nasal spray as prescribed - contact your doctor to schedule a follow-up appointment - contact your doctor , return here, or go to the emergency department with questions or concerns - Billing Disposition and Condition Condition: STABLE Disposition: Home
== END 2018-05-05 18:47 | disposition home or self-care (01) ==
LOC: UCCORT 17:21
DX: J32.9 Chronic sinusitis, unspecified (principal); E11.9 Type 2 diabetes mellitus without complications; I10 Essential (primary) hypertension; J44.9 Chronic obstructive pulmonary disease, unspecified; Z88.8 Allergy status to other drugs, medicaments and biological substances
CPT/HCPCS: 99202; G0463